=== PATIENT | male | born 1965 | race Caucasian/White ===

== ENCOUNTER 2018-08-09 10:16 | Outpatient (CLI) | payer OTHER ==
[~2018-08-09 10:16] MED LIST: OSEL75CA PO; PHENERGAN25 MG PO; TUSSI PRES-B L120 M1 PO
== END 2018-08-09 10:27 | disposition home or self-care (01) ==
LOC: TOM 10:16
DX: K57.20 Diverticulitis of large intestine with perforation and abscess without bleeding (principal)

== ENCOUNTER 2019-05-09 09:27 | Outpatient (CLI) | payer OTHER | END 2019-05-09 09:43 | disposition home or self-care (01) | LOC: TOM 09:27 | DX: K57.32 Diverticulitis of large intestine without perforation or abscess without bleeding (principal) ==

== ENCOUNTER 2024-07-09 13:06 | Emergency (ER) | payer OTHER ==
[~2024-07-09] VITALS: Ht 175.3 cm; Wt 79.4 kg
[2024-07-09] MEDS ORDERED: 0.9 % SODIUM CHLORIDE 1,000 ML IV ONE (14:00)
[2024-07-09] MEDS ORDERED: FAMOtidine 10 MG/ML (4ML VIAL) IV ONE (14:00)
[2024-07-09] MEDS ORDERED: PIPERACILLIN/TAZOBACTAM SODIUM 3.375 GM VIAL IV ONE (14:00)
[2024-07-09 15:55] LABS: PH,URINE 6.5 (5.0-8.0); URINE APPEARANCE Clear; URINE BILIRRUBIN Negative (NEGATIVE); URINE BLOOD Negative; URINE COLOR Yellow; URINE GLUCOSE Negative (NEGATIVE); URINE KETONE Negative (NEGATIVE); URINE LEUKOCYTE Negative; URINE NITRATE Negative; URINE PROTEIN Negative (NEGATIVE); URINE UROBILINOGEN 0.2 E.U./dl
[2024-07-09 16:03] LABS: URINE WBC 0.2 uL (0.0-23.2)
[2024-07-09 16:04] LABS: HEMATOCRIT 41.8 % (39.0-48.0); HEMOGLOBIN 14.9 g/dL (13-16.00); MEAN CELL VOLUME 87.1 fL (80.0-100.00); MEAN CORPUSCULAR HGB CONC 35.7 g/dl (32.0-36.0); PLATELET COUNT 293 K/uL (150-450); RED BLOOD COUNT 4.81 M/uL (4.00-6.00); RED CELL DISTRIBUTION WIDTH 13.5 % (11.5-14.5)
[2024-07-09 16:13] LABS: ERYTHROCYTE SEDIMENTATION RATE 4 mm/hr
[2024-07-09 16:38] LABS: ALBUMIN 4.2 gm/dL (3.4-5.0); BILIRUBIN TOTAL 0.37 mg/dL (0.3-1.2); CALCIUM 9.2 mg/dL (8.5-10.1); CREATININE SERUM 1.14 mg/dL (0.70-1.30); GFR 65.75; GLOBULINA 3.2 G/DL (2.4-3.5); POTASSIUM 3.89 mEq/L (3.5-5.1); TOTAL PROTEIN 7.4 gm/dL (6.4-8.2)
[2024-07-09 16:50] LABS: C-REACTIVE PROTEIN 0.37 MG/DL (0.00-0.29)
== END 2024-07-09 17:48 | disposition home or self-care (01) ==
LOC: ER 13:08
PROVIDERS: General Practice
DX: R53.1 Weakness (principal); Z91.041 Radiographic dye allergy status; Z88.8 Allergy status to other drugs, medicaments and biological substances; I49.8 Other specified cardiac arrhythmias; E11.9 Type 2 diabetes mellitus without complications; G47.39 Other sleep apnea; F41.8 Other specified anxiety disorders; B96.0 Mycoplasma pneumoniae [M. pneumoniae] as the cause of diseases classified elsewhere; Z20.822 Contact with and (suspected) exposure to COVID-19